=== PATIENT | male | born 1985 | race Asian ===

== ENCOUNTER 2022-11-04 18:54 | Emergency (ER) | payer OTHER ==
[~2022-11-04] VITALS: Ht 175.3 cm
[2022-11-04 23:01] VITALS: BP 132/85; TEMP 98.7
== END 2022-11-04 23:01 | disposition home or self-care (01) ==
LOC: ED 18:54
DX: S93.401A Sprain of unspecified ligament of right ankle, initial encounter (principal); X58.XXXA Exposure to other specified factors, initial encounter
CPT/HCPCS: 99282; J1885